=== PATIENT | male | born 1960 | race Caucasian/White ===

== ENCOUNTER → 2024-02-06 | Outpatient (CLI) | payer OTHER ==
--- NOTE | 2024-02-06 18:40 | PE ---
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 Images are reviewed on the computer in the coronal, axial, and sagittal planes. Reconstructed rotating images are created on independent workstation and reviewed on the computer. A non-contrast CT is performed in conjunction with the PET scan. Glucose level 90 mg/dL CT DLP: 901.69 mGycm, Automated exposure control for dose reduction was used. COMPARISON: CT 07/24/2015, PET/CT None, MRI: None FINDINGS: Mediastinal SUV mean is 2.1. Hepatic parenchyma SUV mean is 2.5. SKULL BASE AND NECK: Diffuse uptake identified within the thyroid gland with a maximum SUV of 7.7. No other suspicious sites of radiotracer uptake. CHEST, MEDIASTINUM, AND HILAR REGION: Distal esophageal FDG radiotracer marked uptake with a maximum SUV of 73. This extends to the GE junc tion. No other suspicious uptake within the chest. ABDOMEN AND PELVIS: Enlarged gastrohepatic lymph node measuring 1.3 cm with a maximum SUV of 8.3. No other suspicious sites of radiotracer uptake within the abdomen or pelvis. MUSCULOSKELETAL STRUCTURES: No suspicious radiotracer activity. OTHER CT: Coronary artery calcifications. Degenerative changes of the spine. Minimal scoliotic curvat ure of the spine. Postsurgical changes with anastomosis in the region of the sigmoid colon. Distal co lonic diverticulosis. Mild to moderate atherosclerotic calcification of the aorta and its branches. D iastases rectus. IMPRESSION: 1. Marked FDG radiotracer uptake of the distal esophagus to the GE junction consistent with reported esophageal malignancy. 2. Enlarged FDG avid gastrohepatic metastatic lymph node. 3. Diffuse thyroid radiotracer uptake which can be seen with conditions such as autoimmune thyroidit is or Graves' disease versus other etiologies. Further workup is recommended. [facility], , 02/06/2024 6:38 PM
== END | disposition home or self-care (01) ==
LOC: RADPETMAIN 09:44
PROVIDERS: ATTEND Internal Medicine Hematology & Oncology
DX: C15.5 Malignant neoplasm of lower third of esophagus (principal)
CPT/HCPCS: 78815

== ENCOUNTER 2024-03-05 12:07 | Day surgery (SDC) | payer OTHER ==
[2024-03-04 09:52] VITALS: BMI 31.5
[~2024-03-05 12:07] MED LIST: HYDROmorphone 0.5 MG/0.5 ML SYRINGE IVP PRN; MIDAZOLAM 2 MG/2 ML VIAL IV PRN
[2024-03-05] MEDS: IV FLUID CONTINUATION 1,000 ML IV ONE (13:02)
[2024-03-05] MEDS: LACTATED RINGERS 1,000 ML IV SCH (13:03)
[2024-03-05] MEDS: DEXAMETHASONE SOD PHOSPHATE 4 MG/ML 1 ML VIAL IV ONE (13:04)
[2024-03-05] MEDS: ONDANSETRON 4 MG/2 ML VIAL IVP ONE (13:04)
[2024-03-05] MEDS ORDERED: ceFAZolin 1 GM/50 ML BAG (PMX) ONE (15:13)
[2024-03-05] MEDS ORDERED: PROPOFOL 10 MG/ML 20 ML VIAL IV ONE (15:13)
[2024-03-05] MEDS ORDERED: fentaNYL (PF) 50 MCG/ML 2 ML AMP ONE (15:13)
[2024-03-05] MEDS ORDERED: MIDAZOLAM 2 MG/2 ML VIAL ONE (15:13)
[2024-03-05] MEDS: SODIUM CHLORIDE 0.9% 100 ML with ceFAZolin 2,000 MG IV ONE (15:18)
[2024-03-05] MEDS: LIDOCAINE 1% INJ 10MG/ML (20 ML MDV) SQ ONE ×2 (15:40)
[2024-03-05] MEDS: LACTATED RINGERS 1,000 ML IV ONE (15:57)
--- NOTE | 2024-03-05 16:32 | FL ---
EXAMINATION TYPE: FL guided central line placemt DATE OF EXAM: 03/05/2024 4:19 PM COMPARISON: Pre Operative Images if available both CT/MRI or plain film CLINICAL INDICATION: Male, 63 years old with history of PORTACATH PLACEMENT; TECHNIQUE: FL guided central line placemt, multiple fluoroscopic images provided for procedure. Total fluoroscopy time: 128 seconds Total submitted images to PACS: 1 DAP: [id number] mGym2 Gycm2 uGym2 cGycm2 or equivalent. FINDINGS: Fluoroscopic imaging for Port-A-Cath insertion no evidence for pneumothorax. IMPRESSION: 1. No evidence for intraoperative complication. 2. Please see the operative/procedural note for further details. [facility], , 03/05/2024 4:29 PM
--- NOTE | 2024-03-05 17:14 | XR ---
EXAMINATION TYPE: XR chest 1V DATE OF EXAM: 03/05/2024 4:36 PM COMPARISON: None CLINICAL INDICATION: Male, 63 years old with history of MEDIPORT PLACEMENT; [facility] TECHNIQUE: XR chest 1V Frontal view of the chest. FINDINGS: Lungs/Pleura: There is no evidence of pleural effusion, focal consolidation, or pneumothorax. Pulmonary vascularity: Unremarkable. Heart/mediastinum: Cardiomediastinal silhouette is unremarkable. Musculoskeletal: No acute osseous pathology. Other findings: None Lines/Tubes: [id number] projecting over the right hemithorax with distal tip at the cavoatrial junction. IMPRESSION: No acute cardiopulmonary disease/process. [facility], , 03/05/2024 5:11 PM
[2024-03-05 17:31] LABS: Glucose,Whole Blood 116 mg/dL (70-110)
[2024-03-05] MEDS: METOPROLOL TARTRATE 5 MG/5 ML VIAL IVP STA (17:31)
[2024-03-05] MEDS: DILTIAZEM 125 MG in SODIUM CHLORIDE 0.9% 100 ML IV SCH (18:33)
[2024-03-05] MEDS: SCOPOLAMINE 1 MG/72 HR PATCH TRANSDERM ONE (18:45)
[2024-03-05] MEDS: Pre Op ABX Message 1 EACH MISC MISCELLANE ONE (18:45)
[2024-03-06 08:35] VITALS: RESP 16
[2024-03-06 11:35] VITALS: PULSE 70
[2024-03-06 15:56] VITALS: BP 120/58; TEMP 97
--- NOTE | 2024-03-06 19:18 | P.GSHP ---
History of Present Illness patient is 60-year-old male with esophageal cancer being admitted postoperatively after having afib from undergoing a Mediport insertion. Past Medical History Past Medical History: Cancer, GERD/Reflux Additional Past Medical History / Comment(s): diverticulitis, sleep apnea-no CPAP, Esophageal cancer. A-fib NOS 03/05 post mediport History of Any Multi-Drug Resistant Organisms: None Reported Past Surgical History: Orthopedic Surgery Additional Past Surgical History / Comment(s): Colonoscopy, finger reattached from accident, colon resection, Esophageal scopes. Past Anesthesia/Blood Transfusion Reactions: No Reported Reaction Smoking Status: Former smoker - Past Family History Mother Family Medical History: No Reported History Father Family Medical History: No Reported History Additional Family Medical History / Comment(s): Dementia Medications and Allergies Home Medications Medication Instructions Recorded Confirmed Type Omeprazole [PriLOSEC] 20 mg PO AC-BRKFST 03/04/24 03/05/24 History Tirzepatide [Zepbound] 5 mg SQ Q7D 03/04/24 03/05/24 History Allergies Allergy/AdvReac Type Severity Reaction Status Date / Time No Known Allergies Allergy Verified 03/05/24 12:49 Surgical - Exam Osteopathic Statement: *. No significant issues noted on an osteopathic structural exam other than those noted in the History and Physical/Consult. Vital Signs Temp Pulse Resp BP Pulse Ox 97.9 F 64 18 144/69 96 03/05/24 12:45 03/05/24 12:45 03/05/24 12:45 03/05/24 12:45 03/05/24 12:45 general no acute distress alert annoyance 3 18 TH Ferrari normocephalic and spell or mucosa moist no neck masses appreciated Cardiac vascular regular rate and rhythm Pulmonary nonlabored breathing Abdomen soft nontender nondistended no guarding rebound tenderness Chest demonstrates a port in place surgical site clean dry and intact Assessment and Plan Assessment: 63-year-old male with esophageal cancer Status post Mediport insertion new onset A. fib Converted to sinus rhythm Stable for discharge Time with Patient: Less than 30
--- NOTE | 2024-03-06 19:21 | P.OP ---
Date of Procedure: 03/05/24 Preoperative Diagnosis: esophageal cancer Postoperative Diagnosis: esophageal cancer Procedure(s) Performed: right-sided Mediport insertion Anesthesia: local Surgeon: Tushar Mccann Pathology: none sent Condition: stable Disposition: floor Indications for Procedure: Esophageal cancer Description of Procedure: patient was brought to the operating suite where he was cleaned and draped in sterile fashion and timeout was performed and everyone agreed with the above- mentioned side effects the patient was anesthetized with the anesthesia team and introducer needle was then used to cannulate the subclavian vein a guidewire was placed with this to the cavoatrial junction. 2 finger breaths below the neck incision a pocket was created using a #15 blade and electrocautery dissecting down to the prepectoral fascia. Once a pocket was created and we used the tunneling device to place a catheter through the subcutaneous tissue through the neck incision. Fluoroscopy was then used to convert the guidewire and also to place the dilator sheath combo. The catheter was in place to the dilator sheath combo to the cavoatrial junction. Once this is confirmed the catheter was cut and the Mediport was placed over this, but the locking mechanism and sutured down to the prepectoral fascia. A Tafoya needle was used to confirm flow. And this was flushed using normal saline. Incision was then closed using 4-0 Vicryl suture in running fashion.
== END 2024-03-06 17:52 | disposition home or self-care (01) ==
LOC: OR 12:07 → 3SCARD 17:36 → OR 03-06 17:52
PROVIDERS: ATTEND Surgery
DX: C15.9 Malignant neoplasm of esophagus, unspecified (principal); I48.91 Unspecified atrial fibrillation; G47.30 Sleep apnea, unspecified; K21.9 Gastro-esophageal reflux disease without esophagitis; Z87.891 Personal history of nicotine dependence; Z79.899 Other long term (current) drug therapy
CPT/HCPCS: 77001; 71045; 36561; J1100; J2405; J0690; J2003

== ENCOUNTER 2024-03-25 17:58 | Inpatient (IN) | payer OTHER ==
[2024-03-25] MEDS: SODIUM CHLORIDE 0.9% 1,000 ML IV ONE (18:57)
[2024-03-25 19:02] LABS: HCT 42.6 % (39.0-53.0); HGB 14.5 gm/dL (13.0-17.5); MCV 85.5 fL (80.0-100.0); Mean Platelet Volume 7.8; Platelet Count 165 k/uL (150-450); RBC 4.98 m/uL (4.30-5.90); RDW 12.2 % (11.5-15.5)
[2024-03-25 19:04] LABS: VBG PH 7.48 (7.31-7.41)
[2024-03-25 19:16] LABS: INR 0.9 (<1.2); Partial Thromboplastin Time 25.3 sec (22.0-30.0); Prothrombin Time 10.5 sec (10.0-12.5)
--- NOTE | 2024-03-25 19:16 | XR ---
EXAMINATION TYPE: XR chest 2V DATE OF EXAM: 03/25/2024 7:10 PM COMPARISON: Previous chest radiograph 03/05/2024. CLINICAL INDICATION: Male, 63 years old with history of altered mental status; [facility] TECHNIQUE: XR chest 2V Frontal and lateral views of the chest. FINDINGS: Lungs/Pleura: There is no evidence of pleural effusion, focal consolidation, or pneumothorax. Pulmonary vascularity: Unremarkable. Heart/mediastinum: Cardiomediastinal silhouette is prominent in size. Musculoskeletal: No acute osseous pathology. Other findings: None Lines/Tubes: Right internal jugular central venous catheter with distal tip at the right atrium. IMPRESSION: No acute cardiopulmonary disease/process. [facility], , 03/25/2024 7:14 PM
[2024-03-25 19:25] LABS: WBC 1.4 k/uL (3.8-10.6)
[2024-03-25 19:27] LABS: Lactic Acid, Venous 1.3 mmol/L (0.7-2.0)
[2024-03-25 19:28] LABS: ALT 32 U/L (4-49); AST 28 U/L (17-59); African American GFR (CKD) >90 (>60 ml/min/1.73 sqM); Albumin 4.4 g/dL (3.5-5.0); Alcohol <10 mg/dL; Alkaline Phosphatase 65 U/L (38-126); Anion Gap 11 mmol/L; Blood Urea Nitrogen 23 mg/dL (9-20); Calcium 9.3 mg/dL (8.4-10.2); Carbon Dioxide 27 mmol/L (22-30); Chloride 99 mmol/L (98-107); Glucose 130 mg/dL (74-99); Non-African American GFR(CKD) >90 (>60 ml/min/1.73 sqM); Potassium 3.7 mmol/L (3.5-5.1); Sodium 137 mmol/L (137-145); Total Bilirubin 1.1 mg/dL (0.2-1.3)
[2024-03-25 19:53] LABS: Band Neutrophils % 4 %; Eosinophils # (M) 0.03 k/uL (0-0.7); Lymphocytes # (M) 0.59 k/uL (1.0-4.8); Monocytes # (M) 0.22 k/uL (0-1.0); Neutrophils % (M) 36 %; Nucleated Red Blood Cells 0 /100 WBC (0-0); RBC Morphology Normal; Total Cells Counted 100
[2024-03-25] MEDS: DEXAMETHASONE SOD PHOSPHATE 10 MG/ML 1 ML VIAL IVP STA (19:55)
--- NOTE | 2024-03-25 20:28 | CT ---
EXAMINATION TYPE: CT brain wo con DATE OF EXAM: 03/25/2024 7:34 PM COMPARISON: None available. CLINICAL INDICATION: Male, 63 years old with history of Altered mental status, ams TECHNIQUE: Brain: Axial CT images of the brain were obtained with coronal and sagittal reformats created and rev iewed. Contrast used: None. Oral contrast used: None. CT DLP: 1154.4 mGycm, Automated exposure control for dose reduction was used. FINDINGS: Brain: Peripherally hyperdense mass in the left frontal lobe measuring 3.0 x 3.3 x 3.5 cm with extensive martha rounding vasogenic edema and associated rightward mass effect. There is approximately [address] midline shift of the septum pellucidum. 5 Basal cisterns appear patent. Remaining portions of the allen-white matter differentiation appear ac utely preserved. No sizable extra-axial fluid collection appreciated. Sinuses and mastoid air cells a ppear patent. No large scalp hematoma or depressed calvarial fracture. IMPRESSION: Large circumscribed peripherally hyperdense possibly centrally necrotic left frontal lobe mass measur ing 3.0 x 3.3 x 3.5 cm with extensive surrounding vasogenic edema and associated mass effect and mild rightward midline shift as described above. Findings could reflect either metastatic disease or prim sherry brain malignancy. Recommend neurosurgical consultation and MRI with IV contrast for further evalu ation as clinically indicated. [facility], , 03/25/2024 8:25 PM
--- NOTE | 2024-03-25 21:25 | ED ---
General Adult HPI - General Chief complaint: Altered Mental Status Stated complaint: post chemo lethargy Time Seen by Provider: 03/25/24 18:20 Source: patient, family, RN notes reviewed, old records reviewed Mode of arrival: wheelchair Limitations: no limitations - History of Present Illness Initial comments: Patient is a 63-year-old male with past medical history remarkable for esophageal cancer with what sounds like metastasis to the liver. Currently on chemotherapy. No other significant past medical history. Presents for altered mental status for 2 to 3 days. Worse today. They are concerned it might be related dehydration as patient has not been eating or drinking. He is below baseline as he normally is alert and oriented x 4. Currently is alert and oriented x 1. No other obvious acute complaints at this time. He is acting atypically per patient's . Brought in for further evaluation.Patient cannot provide any history other than he is in no pain. Otherwise is confused with the discussion.He can follow directions but is an unreliable historian. - Related Data Home Medications Medication Instructions Recorded Confirmed Omeprazole [PriLOSEC] 20 mg PO AC-BRKFST 03/04/24 03/05/24 Tirzepatide [Zepbound] 5 mg SQ Q7D 03/04/24 03/05/24 Allergies Allergy/AdvReac Type Severity Reaction Status Date / Time No Known Allergies Allergy Verified 03/05/24 12:49 Review of Systems ROS Statement: Those systems with pertinent positive or pertinent negative responses have been documented in the HPI. ROS Other: All systems not noted in ROS Statement are negative. Past Medical History Past Medical History: Cancer, GERD/Reflux Additional Past Medical History / Comment(s): diverticulitis, sleep apnea-no C PAP, Esophageal cancer. A-fib NOS 03/05 post mediport History of Any Multi-Drug Resistant Organisms: None Reported Past Surgical History: Orthopedic Surgery Additional Past Surgical History / Comment(s): Colonoscopy, finger reattached from accident, colon resection, Esophageal scopes. Past Anesthesia/Blood Transfusion Reactions: No Reported Reaction Past Psychological History: No Psychological Hx Reported Smoking Status: Former smoker - Past Family History Mother Family Medical History: No Reported History Father Family Medical History: No Reported History Additional Family Medical History / Comment(s): Dementia General Exam - General Exam Comments Initial Comments: General: Appears in no acute distress. HEAD: Normal with no signs of head trauma. EYES: PERRLA, EOMI, conjunctiva normal, no discharge. Pupils are 2 to 3 mm and equal bilaterally. ENT: Hearing grossly intact, normal oropharynx. RESPIRATORY: Clear breath sounds bilaterally. No wheezes, rales, or rhonchi. C/V: Regular rate and rhythm. S1 and S2 auscultated, no edema, peripheral pulses 2+ and intact throughout. Right chest port in place. ABD: Abd is soft, nontender, nondistended EXT: Normal range of motion, no obvious deformity SKIN: No rashes or lesions observed on exposed skin. NEURO: Alert and oriented x 1. Baseline is alert and oriented x 4. No obvious focal deficits. Patient is confused. Limitations: no limitations Course Vital Signs 03/25/24 03/25/24 03/25/24 18:14 18:52 19:57 Temperature 99.3 F 98.8 F Pulse Rate 88 80 85 Respiratory 20 16 17 Rate Blood Pressure 117/73 144/82 145/76 O2 Sat by Pulse 97 94 L 95 Oximetry Medical Decision Making - Medical Decision Making Was pt. sent in by a medical professional or institution (, PA, ORGANIZATIONAL DEVELOPMENT DIRECTOR, urgent care, hospital, or retirement...) When possible be specific @ -No Did you speak to anyone other than the patient for history (EMS, parent, family, police, friend...)? What history was obtained from this source @ -Patient's family is the primary historian for the patient. Patient cannot provide any significant history of form. Did you review nursing and triage notes (agree or disagree)? Why? @ -I reviewed and agree with nursing and triage notes Were old charts reviewed (outside hosp., previous admission, EMS record, old EKG, old radiological studies, urgent care reports/EKG's, retirement records)? Report findings @ -Old charts including PET scan reviewed from January 2024. Differential Diagnosis (chest pain, altered mental status, abdominal pain women, abdominal pain men, vaginal bleeding, weakness, fever, dyspnea, syncope, headache, dizziness, GI bleed, back pain, seizure, CVA, palpatations, mental health, musculoskeletal)? @ -Differential Altered Mental Status: Hypoglycemia, DKA, hypercapnia, ETOH, overdose, CO poisoning, trauma, myxedema coma, HTN encephalopathy, infection, encephalitis, psychosis, intercranial hemorrhage, hepatic encephalopathy, meningitis, CVA, this is not meant to be an all-inclusive list EKG interpreted by me (3pts min.). @ -As above X-rays interpreted by me (1pt min.). @ -Chest x-ray reveals no obvious acute cardiopulmonary process. CT interpreted by me (1pt min.). @ -Brain CT reveals a necrotic left frontal lobe mass with surrounding vasogenic edema and mild midline shift of 6 mm. U/S interpreted by me (1pt. min.). @ -None done What testing was considered but not performed or refused? (CT, X-rays, U/S, labs)? Why? @ -None What meds were considered but not given or refused? Why? @ -None Did you discuss the management of the patient with other professionals (professionals i.e. , PA, ORGANIZATIONAL DEVELOPMENT DIRECTOR, lab, RT, psych nurse, psychiatric social worker, eyewear manufacturing supervisor, teacher, corrections officer, protective services case worker)? Give summary @ -Discussed with oncology on-call, Dr. Gil, who was in agreement with no need for transfer at this time as patient likely will require radiation as well as IV steroids. Discussed the case with on-call neurologist, Dr. Reyes she was in agreement this plan and requested an additional 10 mg IV Decadron bolus as well as 6 mg Decadron every 6 hr. Discussed the case with admitting physician, Dr. Winn who accepted the admission. Was smoking cessation discussed for >3mins.? @ -No Was critical care preformed (if so, how long)? @ -Yes, 42 minutes Were there social determinants of health that impacted care today? How? (Homelessness, low income, unemployed, alcoholism, drug addiction, transportation, low edu. Level, literacy, decrease access to med. care, retirement, rehab)? @ -No Was there de-escalation of care discussed even if they declined (Discuss DNR or withdrawal of care, Hospice)? DNR status @ -Discussed at length with the patient's who is the decision maker for the patient as he is incapacitated and incoherent and unable to make his own decisions. Discussed that he did not want any extraneous surgeries or strenuous care. Discussed that if he were to need brain surgery, what he wanted and patient's expressed that he would not. We both agreed to make the patient DNR/DNI at this time. What co-morbidities impacted this encounter? (DM, HTN, Smoking, COPD, CAD, Cancer, CVA, ARF, Chemo, Hep., AIDS, mental health diagnosis, sleep apnea, morbid obesity)? @ -Cancer Was patient admitted / discharged? Hospital course, mention meds given and route, prescriptions, significant lab abnormalities, going to OR and other pertinent info. @ -Based on patient's presentation and physical exam, presents with altered mental status. Has a history of metastatic cancer. Currently undergoing chemo. Appears dehydrated as well. We will obtain broad workup. Vital signs within acceptable limits. Patient is ANO x 1 when baseline he is A and O x 4. No focal deficits. Patient was in agreement this plan. Laboratory studies are all unremarkable except for a leukopenia which is fitting in the setting of chemo. No fever. Chest x-ray unremarkable. EKG unremarkable. CT does show a necrotic frontal lobe mass on the left with mild midline shift of 6 mm. No prior brain imaging during cancer workup. I discussed results with the patient's . We discussed at length options. This includes transfer for neurosurgery evaluation, however after discussion it appears that patient would prefer to be DNR DNI based on prior discussion she had with him. He would not request any strenuous surgeries or circumstances. Therefore patient will be made DNR/DNI and will be admitted to our facility for IV steroids, oncology evaluation, neurology evaluation. I discussed the case with Dr. Gil of oncology who was in agreement with this plan and agreed with these recommendations of keeping patient at our facility.Discussed the case with on-call neurologist, Dr. Reyes she was in agreement this plan and requested an additional 10 mg IV Decadron bolus as well as 6 mg Decadron every 6 hr. Discussed the case with admitting physician, Dr. Winn who accepted the admission. Undiagnosed new problem with uncertain prognosis? @ -No Drug Therapy requiring intensive monitoring for toxicity (Heparin, Nitro, Insulin, Cardizem)? @ -No Were any procedures done? @ -No Diagnosis/symptom? @ -Altered mental status likely secondary to vasogenic edema from necrotic brain malignancy Acute, or Chronic, or Acute on Chronic? @ -Acute Uncomplicated (without systemic symptoms) or Complicated (systemic symptoms)? @ -Complicated Side effects of treatment? @ -No Exacerbation, Progression, or Severe Exacerbation? @ -No Poses a threat to life or bodily function? How? (Chest pain, [place], [place], pneumonia, PE, COPD, DKA, ARF, appy, cholecystitis, CVA, Diverticulitis, Homicidal, Suicidal, threat to staff... and all critical care pts) @ -Yes - Lab Data Result diagrams: 03/25/24 18:44 03/25/24 18:44 Lab Results 03/25/24 03/25/24 03/25/24 Range/Units 18:44 18:44 18:44 WBC 1.4 L* (3.8-10.6) k/uL RBC 4.98 (4.30-5.90) m/uL Hgb 14.5 (13.0-17.5) gm/dL Hct 42.6 (39.0-53.0) % MCV 85.5 (80.0-100.0) fL MCH 29.0 (25.0-35.0) pg MCHC 34.0 (31.0-37.0) g/dL RDW 12.2 (11.5-15.5) % Plt Count 165 (150-450) k/uL MPV 7.8 Neutrophils % (Manual) 36 % Band Neuts % (Manual) 4 % Lymphocytes % (Manual) 42 % Monocytes % (Manual) 16 % Eosinophils % (Manual) 2 % Neutrophils # (Manual) 0.50 L (1.3-7.7) k/uL Lymphocytes # (Manual) 0.59 L (1.0-4.8) k/uL Monocytes # (Manual) 0.22 (0-1.0) k/uL Eosinophils # (Manual) 0.03 (0-0.7) k/uL Nucleated RBCs 0 (0-0) /100 WBC Manual Slide Review Performed RBC Morphology Normal PT 10.5 (10.0-12.5) sec INR 0.9 (<1.2) APTT 25.3 (22.0-30.0) sec VBG pH (7.31-7.41) VBG pCO2 (37-51) mmHg VBG HCO3 (24-28) mmol/L Sodium 137 (137-145) mmol/L Potassium 3.7 (3.5-5.1) mmol/L Chloride 99 (98-107) mmol/L Carbon Dioxide 27 (22-30) mmol/L Anion Gap 11 mmol/L BUN 23 H (9-20) mg/dL Creatinine 0.85 (0.66-1.25) mg/dL Est GFR (CKD-EPI)AfAm >90 (>60 ml/min/1.73 sqM) Est GFR (CKD-EPI)NonAf >90 (>60 ml/min/1.73 sqM) Glucose 130 H (74-99) mg/dL Plasma Lactic Acid Evin (0.7-2.0) mmol/L Calcium 9.3 (8.4-10.2) mg/dL Total Bilirubin 1.1 (0.2-1.3) mg/dL AST 28 (17-59) U/L ALT 32 (4-49) U/L Alkaline Phosphatase 65 (38-126) U/L Ammonia (<30) umol/L Total Protein 7.0 (6.3-8.2) g/dL Albumin 4.4 (3.5-5.0) g/dL Serum Alcohol <10 mg/dL Influenza Type A (PCR) (Not Detectd) Influenza Type B (PCR) (Not Detectd) RSV (PCR) (Not Detectd) SARS-CoV-2 (PCR) (Not Detectd) 03/25/24 03/25/24 03/25/24 Range/Units 18:44 18:44 18:44 WBC (3.8-10.6) k/uL RBC (4.30-5.90) m/uL Hgb (13.0-17.5) gm/dL Hct (39.0-53.0) % MCV (80.0-100.0) fL MCH (25.0-35.0) pg MCHC (31.0-37.0) g/dL RDW (11.5-15.5) % Plt Count (150-450) k/uL MPV Neutrophils % (Manual) % Band Neuts % (Manual) % Lymphocytes % (Manual) % Monocytes % (Manual) % Eosinophils % (Manual) % Neutrophils # (Manual) (1.3-7.7) k/uL Lymphocytes # (Manual) (1.0-4.8) k/uL Monocytes # (Manual) (0-1.0) k/uL Eosinophils # (Manual) (0-0.7) k/uL Nucleated RBCs (0-0) /100 WBC Manual Slide Review RBC Morphology PT (10.0-12.5) sec INR (<1.2) APTT (22.0-30.0) sec VBG pH 7.48 H (7.31-7.41) VBG pCO2 36 L (37-51) mmHg VBG HCO3 27 (24-28) mmol/L Sodium (137-145) mmol/L Potassium (3.5-5.1) mmol/L Chloride (98-107) mmol/L Carbon Dioxide (22-30) mmol/L Anion Gap mmol/L BUN (9-20) mg/dL Creatinine (0.66-1.25) mg/dL Est GFR (CKD-EPI)AfAm (>60 ml/min/1.73 sqM) Est GFR (CKD-EPI)NonAf (>60 ml/min/1.73 sqM) Glucose (74-99) mg/dL Plasma Lactic Acid Evin 1.3 (0.7-2.0) mmol/L Calcium (8.4-10.2) mg/dL Total Bilirubin (0.2-1.3) mg/dL AST (17-59) U/L ALT (4-49) U/L Alkaline Phosphatase (38-126) U/L Ammonia 21 (<30) umol/L Total Protein (6.3-8.2) g/dL Albumin (3.5-5.0) g/dL Serum Alcohol mg/dL Influenza Type A (PCR) Not Detected (Not Detectd) Influenza Type B (PCR) Not Detected (Not Detectd) RSV (PCR) Not Detected (Not Detectd) SARS-CoV-2 (PCR) Not Detected (Not Detectd) - EKG Data -: EKG Interpreted by Me EKG Comments: 12-lead Electrocardiogram Interpretation Note EKG was reviewed and interpreted by myself. 12-lead ECG performed at 1824 is interpreted by me as revealing normal sinus rhythm at a rate of 85 beats per minute. [place] is normal. ID interval is 145 ms, QRS duration is 102 ms, QTc is 4 and 38 ms.. There were no ST or T wave abnormalities to suggest myocardial ischemia or injury. R wave progression across the precordium was satisfactory. By my interpretation this EKG is non-diagnostic for acute ischemia. Critical Care Time Critical Care Time: Yes Total Critical Care Time: 42 Disposition Clinical Impression: Altered mental status, Metastatic disease, Malignant frontal lobe tumor Disposition: ADMITTED IP TO THIS [facility] Condition: Serious Referrals: Mata Monzon MD [Primary Care Provider] - 1-2 days Time of Disposition: 21:25
[2024-03-25] MEDS ORDERED: SODIUM CHLORIDE 0.9% 1,000 ML IV STA (21:26)
[2024-03-25] MEDS ORDERED: NALOXONE 0.4 MG/ML 1 ML VIAL IV PRN (21:27)
[2024-03-25] MEDS ORDERED: ONDANSETRON 4 MG/2 ML VIAL IVP PRN (21:27)
[2024-03-26] MEDS: DEXAMETHASONE SOD PHOSPHATE 10 MG/ML 1 ML VIAL IVP STA (02:02)
[2024-03-26 02:28] LABS: Appearance,Urine Clear (Clear); Bilirubin,Urine Negative (Negative); Blood,Urine Negative (Negative); Color,Urine Yellow; Glucose,Urine (UA) Negative (Negative); Ketones,Urine 1+ (Negative); Leukocyte Esterase,Urine Negative (Negative); Nitrite,Urine Negative (Negative); Protein,Urine Trace (Negative); Specific Gravity,Urine 1.029 (1.001-1.035); Urobilinogen,Urine <2.0 mg/dL (<2.0)
[2024-03-26 02:40] LABS: Amphetamine Screen,Urine Not Detected (NotDetected); Barbiturate Screen,Urine Not Detected (NotDetected); Benzodiazepines Screen,Urine Not Detected (NotDetected); Cocaine Screen,Urine Not Detected (NotDetected); Methadone Screen, Urine Not Detected (NotDetected); Opiate Screen,Urine Not Detected (NotDetected); Oxycodone Screen, Urine Not Detected (NotDetected); Phencyclidine Screen,Urine Not Detected (NotDetected); Tricyclic Antidepressant,Urine Not Detected (NotDetected); Urn Cannabinoid Scrn Not Detected (NotDetected)
[2024-03-26] MEDS: DEXAMETHASONE SOD PHOSPHATE 10 MG/ML 1 ML VIAL IVP SCH (04:27)
--- NOTE | 2024-03-26 06:50 | P.CNNES ---
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 History of Present Illness: Mr. Elizabeth is a 63-year-old right-handed male with history of esophageal cancer. He had a recent PET scan approximately 1 month ago and staging was unavailable at that time. He also has gastroesophageal reflux disease, diverticulitis and had a colectomy, obstructive sleep apnea for which she does not wear CPAP as well as a transient episode of atrial fibrillation when his port was placed. He was brought to [facility] emergency room on the evening of March 25, 2024 as has noted altered mental status for the past 3 days. The patient has been sleeping profusely and not eating or drinking very much. A CT scan of the brain revealed a left frontal lobe mass approximately 3 x 3.3 x 3.5 cm with some surrounding vasogenic edema and 5 mm of [id number] shift. Neurology was consulted from the emergency room and recommended dexamethasone 20 mg bolus followed by 6 mg every 6 hours. This morning, the patient is arousable but he is confused and not oriented to place or time. He will follow simple commands. There is no evidence of a seizure thus far. When she was consulted for further management and recommendations. Review of Systems Systems was limited secondary to patient's altered mental status. His notes that he was complaining of some knee pain last week and has has had some urinary and bowel incontinence while he has been relatively immobile the past 2 or 3 days Past Medical History Past Medical History: Cancer, GERD/Reflux Additional Past Medical History / Comment(s): diverticulitis, sleep apnea-no CPAP, Esophageal cancer. A-fib NOS 03/05 post mediport History of Any Multi-Drug Resistant Organisms: None Reported Past Surgical History: Orthopedic Surgery Additional Past Surgical History / Comment(s): Colonoscopy, finger reattached from accident, colon resection, Esophageal scopes. Past Anesthesia/Blood Transfusion Reactions: No Reported Reaction Past Psychological History: No Psychological Hx Reported Smoking Status: Former smoker - Past Family History Mother Family Medical History: No Reported History Father Family Medical History: No Reported History Additional Family Medical History / Comment(s): Dementia Medications and Allergies Home Medications Medication Instructions Recorded Confirmed Type Omeprazole [PriLOSEC] 20 mg PO AC-BRKFST 03/04/24 03/05/24 History Tirzepatide [Zepbound] 5 mg SQ Q7D 03/04/24 03/05/24 History Allergies Allergy/AdvReac Type Severity Reaction Status Date / Time No Known Allergies Allergy Verified 03/05/24 12:49 Physical Examination - Vital Signs Vital Signs: Vital Signs Temp Pulse Resp BP Pulse Ox 03/26/24 04:22 97.4 F L 87 17 142/89 95 03/26/24 01:58 98.8 F 79 17 145/76 91 L 03/25/24 19:57 98.8 F 85 17 145/76 95 03/25/24 18:52 80 16 144/82 94 L 03/25/24 18:14 99.3 F 88 20 117/73 97 Intake and Output 03/25/24 03/25/24 03/26/24 14:59 22:59 06:59 Other: Weight 97.976 kg Was somewhat limited by patient's altered mental status and lack of full cooperation. - Constitutional General appearance: average body habitus - EENT EENT: PERRL - Respiratory Respiratory: chest non-tender, lungs clear, normal breath sounds - Cardiovascular Cardiovascular: regular rate, no murmurs - Gastrointestinal Gastrointestinal: normoactive bowel sounds, non-tender - Integumentary Integumentary: normal - Neurologic Cranial nerve examination: PERRL, EOMI, VFF, V1/V2/V3 grossly intact, face symmetric, tongue midline Sensorimotor examination: intact Detailed motor examination: full strength in all major muscle groups Detailed sensory examination: intact Reflex and gait examination: other (This is 4+ approximately 1+ in bilateral upper and lower extremities, and plantar sponsors were downgoing bilaterally.) Results Contrast CT of the brain from March 25 reveals a large centrally positioned left frontal lobe mass approximately 3 x 3.3 x 3.5 cm with surrounding vasogenic edema and 6 mm of [id number]-[id number] shift. There did not appear to be any obvious brainstem compression but there was some compression on the lateral horn of the left lateral ventricle. Chest x-ray revealed a right internal jugular venous catheter ending in the right atrium. Other pertinent labs include white blood cell count significantly decreased at 1.4. Arterial blood gases revealed pH of 7.48 pCO2 36 and reported of 27. - Laboratory Findings CBC and BMP: 03/25/24 18:44 03/25/24 18:44 Abnormal Lab Findings: Abnormal Labs 03/25/24 03/25/24 03/25/24 18:44 18:44 18:44 WBC 1.4 L* Neutrophils # (Manual) 0.50 L Lymphocytes # (Manual) 0.59 L VBG pH 7.48 H VBG pCO2 36 L BUN 23 H Glucose 130 H Urine Protein Urine Ketones 03/26/24 01:56 WBC Neutrophils # (Manual) Lymphocytes # (Manual) VBG pH VBG pCO2 BUN Glucose Urine Protein Trace H Urine Ketones 1+ H Assessment and Plan Assessment: Mr. Elizabeth is a 63-year-old right-handed male with history of esophageal cancer evaluation, now stage IV by evidence of a left frontal lobe mass. He has some significant edema surrounding the mass with altered mental status for the past 2 to 3 days. Plan: 1. The patient will be managed with dexamethasone 6 mg every 6 hours follow-up following a 20 mg bolus last night in the emergency room. 2. I am not ordering an MRI of the brain at this time as the patient has some altered mental status and it may be somewhat difficult to obtain. Follow-up imaging will be dictated by patient's course of improvement or decline. 3. Oncology has been consulted and will follow along with neurology and have an assist management of the patient. 4. Will not start prophylactic anticonvulsants at this time as the patient does not appear to have had a seizure. Should this happen he will receive a Keppra 500 mg every 12 hours. 5. Neurology will continue to follow the patient in house and make further recommendations as needed. Time with Patient: Less than 30
[2024-03-26 07:10] LABS: ALT 32 U/L (4-49); AST 28 U/L (17-59); African American GFR (CKD) >90 (>60 ml/min/1.73 sqM); Albumin 4.2 g/dL (3.5-5.0); Alkaline Phosphatase 61 U/L (38-126); Anion Gap 7 mmol/L; Blood Urea Nitrogen 19 mg/dL (9-20); Calcium 9.3 mg/dL (8.4-10.2); Carbon Dioxide 26 mmol/L (22-30); Chloride 103 mmol/L (98-107); Glucose 150 mg/dL (74-99); Non-African American GFR(CKD) >90 (>60 ml/min/1.73 sqM); Potassium 4.2 mmol/L (3.5-5.1); Sodium 136 mmol/L (137-145); Total Bilirubin 1.1 mg/dL (0.2-1.3)
[2024-03-26 07:54] LABS: Basophils % (A) 0 %; Eosinophils % (A) 0 %; HGB 14.7 gm/dL (13.0-17.5); Lymphocytes # (A) 0.6 k/uL (1.0-4.8); Lymphocytes % (A) 48 %; MCH 29.5 pg (25.0-35.0); MCHC 35.1 g/dL (31.0-37.0); MCV 83.9 fL (80.0-100.0); Mean Platelet Volume 8.4; Monocytes # (A) 0.2 k/uL (0-1.0); Monocytes % (A) 13 %; Neutrophils % (A) 35 %; Platelet Count 194 k/uL (150-450); RDW 12.8 % (11.5-15.5)
[2024-03-26 07:57] LABS: WBC 1.2 k/uL (3.8-10.6)
[2024-03-26 08:36] LABS: Neutrophils # (A) 0.4 k/uL (1.3-7.7)
[2024-03-26] MEDS ORDERED: DEXTROSE 50% SYRINGE 50 ML IVP PRN ×2 (09:42)
[2024-03-26 11:44] LABS: Glucose,Whole Blood 143 mg/dL (70-110)
[2024-03-26] MEDS: INSULIN ASPART (NovoLOG) 100 UNIT/ML VIAL SQ SCH (11:46)
--- NOTE | 2024-03-26 12:56 | P.CONS ---
History of Present Illness - Reason for Consult Consult date: 03/26/24 New diagnosis of brain mass, esophageal cancer - History of Present Illness The patient is a 63-year-old white male, followed by Dr. Smith in the outpatient setting. The patient was diagnosed with a distal esophageal adenocarcinoma in late 01/19. On subsequent staging with PET scan and EUS, he was found to have involvement of perigastric and celiac lymph nodes. The patient was started on chemotherapy with FLOT, and has had 1 cycle last week The patient was brought into the hospital by his family, as over the past 3 days, there was a major change in his mentation. He was quite lethargic, with significantly decreased responsiveness and comprehension. Oral intake had declined markedly. There was no history of headaches, seizure activity, nausea or vomiting. On evaluation in the ER he had a chest x-ray and a CT scan of the brain done, without contrast. This showed a 3 x 3.3 x 3.5 cm mass in the left frontal lobe with surrounding vasogenic edema and about 6 cm of midline shift. The patient was started on high-dose Decadron. When assessed this a.m., there has been about a 50% improvement. He is alert, mobile, and following commands appropriately. However orientation and recall are still significantly diminished. Review of Systems Constitutional: Reports fatigue, Reports weight loss Eyes: denies blurred vision, denies pain Ears: deny: decreased hearing, ear discharge, earache, tinnitus Ears, nose, mouth and throat: Denies headache, Denies sore throat Cardiovascular: Denies chest pain, Denies shortness of breath Respiratory: Denies cough Gastrointestinal: Reports as per HPI, Reports loss of appetite Genitourinary: Reports as per HPI Musculoskeletal: Reports muscle weakness Integumentary: Denies pruritus, Denies rash Neurological: Reports as per HPI, Reports change in mentation, Reports memory loss, Reports weakness Psychiatric: Reports memory loss Endocrine: Reports fatigue, Reports weight change Hematologic/Lymphatic: Reports as per HPI Past Medical History Past Medical History: Cancer, GERD/Reflux Additional Past Medical History / Comment(s): diverticulitis, sleep apnea-no CPAP, Esophageal cancer. A-fib NOS 03/05 post mediport History of Any Multi-Drug Resistant Organisms: None Reported Past Surgical History: Orthopedic Surgery Additional Past Surgical History / Comment(s): Colonoscopy, finger reattached from accident, colon resection, Esophageal scopes. Past Anesthesia/Blood Transfusion Reactions: No Reported Reaction Past Psychological History: No Psychological Hx Reported Smoking Status: Former smoker - Past Family History Mother Family Medical History: No Reported History Father Family Medical History: No Reported History Additional Family Medical History / Comment(s): Dementia Medications and Allergies Home Medications Medication Instructions Recorded Confirmed Type Omeprazole [PriLOSEC] 20 mg PO DAILY PRN 03/04/24 03/26/24 History Lidocaine-Prilocaine Cream [Emla 1 applic TOPICAL DAILY PRN 03/26/24 03/26/24 History Cream 2.5%/2.5%] Ondansetron [Zofran] 4 mg PO Q6H PRN 03/26/24 03/26/24 History dexAMETHasone [Decadron] 4 mg PO DIRECTED 03/26/24 03/26/24 History Allergies Allergy/AdvReac Type Severity Reaction Status Date / Time No Known Allergies Allergy Verified 03/26/24 10:41 Physical Exam Vitals: Vital Signs Temp Pulse Resp BP Pulse Ox 03/26/24 10:54 85 18 130/84 95 03/26/24 09:31 74 18 133/93 94 L 03/26/24 07:19 98.0 F 81 18 144/85 94 L 03/26/24 04:22 97.4 F L 87 17 142/89 95 03/26/24 01:58 98.8 F 79 17 145/76 91 L 03/25/24 19:57 98.8 F 85 17 145/76 95 03/25/24 18:52 80 16 144/82 94 L 03/25/24 18:14 99.3 F 88 20 117/73 97 Intake and Output 03/25/24 03/26/24 03/26/24 22:59 06:59 14:59 Other: Weight 97.976 kg - Constitutional General appearance: no acute distress - EENT Eyes: EOMI, PERRLA ENT: hearing grossly normal, normal oropharynx - Neck Neck: no lymphadenopathy Thyroid: bilateral: normal size - Respiratory Respiratory: bilateral: CTA - Cardiovascular Rhythm: regular Heart sounds: normal: S1, S2 - Gastrointestinal General gastrointestinal: soft - Integumentary Integumentary: normal - Neurologic Neurologic: CNII-XII intact - Musculoskeletal Musculoskeletal: generalized weakness, strength equal bilaterally - Psychiatric Oriented only to self. Able to follow commands. Not oriented to time or place. Unable to state the exact date, or his address. Verbal responses to questions otherwise are somewhat slow, but overall appropriate Results CBC & Chem 7: 03/26/24 06:42 03/26/24 06:42 Labs: Abnormal Lab Results - Last 24 Hours (Table) 03/25/24 03/25/24 03/25/24 Range/Units 18:44 18:44 18:44 WBC 1.4 L* (3.8-10.6) k/uL Neutrophils # (1.3-7.7) k/uL Neutrophils # (Manual) 0.50 L (1.3-7.7) k/uL Lymphocytes # (1.0-4.8) k/uL Lymphocytes # (Manual) 0.59 L (1.0-4.8) k/uL VBG pH 7.48 H (7.31-7.41) VBG pCO2 36 L (37-51) mmHg Sodium (137-145) mmol/L BUN 23 H (9-20) mg/dL Glucose 130 H (74-99) mg/dL POC Glucose (mg/dL) (70-110) mg/dL Urine Protein (Negative) Urine Ketones (Negative) 03/26/24 03/26/24 03/26/24 Range/Units 01:56 06:42 06:42 WBC 1.2 L* (3.8-10.6) k/uL Neutrophils # 0.4 L* (1.3-7.7) k/uL Neutrophils # (Manual) (1.3-7.7) k/uL Lymphocytes # 0.6 L (1.0-4.8) k/uL Lymphocytes # (Manual) (1.0-4.8) k/uL VBG pH (7.31-7.41) VBG pCO2 (37-51) mmHg Sodium 136 L (137-145) mmol/L BUN (9-20) mg/dL Glucose 150 H (74-99) mg/dL POC Glucose (mg/dL) (70-110) mg/dL Urine Protein Trace H (Negative) Urine Ketones 1+ H (Negative) 03/26/24 Range/Units 11:42 WBC (3.8-10.6) k/uL Neutrophils # (1.3-7.7) k/uL Neutrophils # (Manual) (1.3-7.7) k/uL Lymphocytes # (1.0-4.8) k/uL Lymphocytes # (Manual) (1.0-4.8) k/uL VBG pH (7.31-7.41) VBG pCO2 (37-51) mmHg Sodium (137-145) mmol/L BUN (9-20) mg/dL Glucose (74-99) mg/dL POC Glucose (mg/dL) 143 H (70-110) mg/dL Urine Protein (Negative) Urine Ketones (Negative) Chest x-ray: report reviewed CT Scan - head: report reviewed Assessment and Plan (1) Malignant frontal lobe tumor Narrative/Plan: This is a new finding, with the patient presenting with symptoms that have developed over the past 3 to 4 days. The patient has a midline shift of about 6 mm. The family were overall reluctant for transfer and it was therefore d ecided to start him on high-dose steroids and then reassess response. The patient has had significant improvement, but still has ongoing deficits as described in the physical exam and HPI. Case was discussed with radiation oncology, who evaluated his scan. They felt that if the patient has not im proved fully with steroids, and family was willing, then he should have a neurosurgical evaluation and MRI -The above was discussed with the patient and his who are at the bedside in detail. They were advised that if transfer does not definitively mean that the patient will have surgery. That would have to be a decision by the neurosurgeon. If he is felt to require surgery and is an appropriate candidate for the same, and he would proceed with that, and then have radiation. If surgery is not felt to be required, then he would start radiation and then subsequently a steroid taper. Based on our discussion, there were subsequently willing for transfer for neurosurgical evaluation. This was discussed in detail with the admitting service, who will initiate the transfer. -The patient needs MRI for more comprehensive evaluation of the brain. It was felt by neurology, and they evaluated him earlier today, that he likely would not be able to cooperate with the MRI given his altered mentation. The patient does seem more cooperative, but his family is still not certain if he would be able to lay still for the time required to complete the MRI. Since transfer is being initiated, he would hold off on ordering the study if this will happen in the near future. In that case it can be done at the receiving institution. -Continue high-dose IV steroids Current Visit: Yes Status: Acute Code(s): C71.1 - MALIGNANT NEOPLASM OF FRONTAL LOBE SNOMED Code(s): 307115468 (2) Esophageal adenocarcinoma Narrative/Plan: It was discussed with the patient that this finding unfortunately proves stage IV disease. The patient will need to have his [employer] disease treated first prior to resuming systemic therapy. Therefore his chemotherapy will be on hold in the meantime Current Visit: Yes Status: Acute Code(s): C15.9 - MALIGNANT NEOPLASM OF ESOPHAGUS, UNSPECIFIED SNOMED Code(s): 949563595 Plan: Patient's labs showed low WBC of 1.2, due to chemo effect. This could potentially be a complicating factor, if the patient does require surgery the patient should be getting towards the end of his gerardo at this time and hopefully his WBC should start to increase in the next 1 to 2 days. He will be started on filgrastim.
--- NOTE | 2024-03-26 13:35 | P.HPIM ---
History of Present Illness H&P Date: 03/26/24 Chief Complaint: Altered mental status Patient is a 63 year old male with past medical history of esophageal adenocarcinoma diagnosed in 12/2023 with one round of FLOT chemotherapy, gastroesophageal reflux disease, diverticulitis with a colectomy, obstructive sleep apnea not on CPAP presented to the ED with altered mental status. The patient is a poor historian. ED documentation reviewed. His mentation has been altered for 2-3 days and is progressively getting worse. The family mentioned the patient has not been eating or drinking well since a few days and they were worried this could be due to dehydration. His mentions that is normally alert and oriented x4 and that he has been confused for the past 3 days and is behaving atypically of him. The patient answers to yes or no questions and denies any fever, chills, chest pain, palpitations, shortness of breath, cough, abdominal pain, nausea, vomiting, dysuria, hematuria, hematochezia, melena. He is confused and isn't able to provide any history. ED documentation reviewed. In the ED patient was treated with Decadron and 0.9 normal saline. Vitals on admission T 99.3 F, [place] 88, RR 20, BP 117/73, O2 sat 97% on room air EKG independently interpreted as sinus rhythm, poor R wave progression, rate 85 bpm, QTc 438 ms CXR shows no acute cardiopulmonary disease/process Brain CT shows large circumscribed peripherally hyperdense possibly centrally necrotic left frontal lobe mass with extensive surrounding vasogenic edema and associated mass effect and mild rightward midline shift. Metastatic disease/primary brain malignancy VBG shows pH 7.48, pCO2 36, bicarb 27 Labs on admission show WBC 1.4, 14.5, INR 0.9, sodium 137, potassium 3.7, BUN 23, ammonia 21 UA shows trace protein and 1+ ketones Urine toxicology negative, serum alcohol less than 10 Respiratory panel is negative Review of systems: Pertinent positives and negatives as discussed in HPI, a complete review of systems was performed and all other systems are negative. PMH: Metastatic esophageal cancer, GERD, IBAN PSH: Orthopedic surgery FMH: Dementia Social history: Tobacco: Former smoker Alcohol: Occasional Recreational drugs: Denies use Travel: No recent travel history Sick contacts: None Physical examination: Vital signs reviewed General: nontoxic, no distress, appears at stated age Derm: warm, dry, intact Head: atraumatic, normocephalic, symmetric Eyes: EOMI, anicteric sclera Mouth: no lip lesion, mucus membranes moist Cardiovascular: S1 S2 reg, no murmur Lungs: CTA bilateral, no rhonchi, no rales, no accessory muscle use Abdominal: soft, non-tender to palpation Extremities: No cyanosis, clubbing, or pedal edema. Neuro: Alert, Oriented, Gross neurological examination did not reveal any focal deficits. Psych: well appearing, appropriate affect Assessment/Plan: Patient is a 63-year-old male with past medical history of esophageal cancer with metastasis to the left frontal lobe, GERD, IBAN who presented to the ED with altered mental status. He has been started on high dose Decadron for vasogenic edema surrounding the metastatic left frontal lobe mass. Family is counseled on transferring the patient for neurosurgical evaluation. Active: #. Altered mental status #. Stage IV Esophageal adenocarcinoma with metastasis to the left frontal lobe with surrounding vasogenic edema Continue Decadron 6 mg IVP every 6 hours Chemotherapy on hold for now Neurology is following Oncology is following Radiation oncology is consulted #. Leukopenia secondary to chemotherapy Started on Filgrastim 480 mcg SQ daily #. Nausea and vomiting Continue ondansetron 4 mg IVP every 8 hours as needed Chronic: #. Diabetes mellitus Insulin sliding scale and ACHS blood glucose monitoring A1c ordered #. GERD Pantoprazole 40 mg IVP daily F: None E: Replete as required N: Clear liquid diet A: Ambulatory DVT prophylaxis: Lovenox 40 mg SQ daily and SCD GI prophylaxis: Pantoprazole 40 mg IVP daily The patient is admitted with an anticipated more than 2 midnight stay for evaluation of altered mental status CODE STATUS: No code Discussed with: Patient and family Anticipated discharge place: Home Past Medical History Past Medical History: Cancer, GERD/Reflux Additional Past Medical History / Comment(s): diverticulitis, sleep apnea-no CPAP, Esophageal cancer. A-fib NOS 03/05 post mediport History of Any Multi-Drug Resistant Organisms: None Reported Past Surgical History: Orthopedic Surgery Additional Past Surgical History / Comment(s): Colonoscopy, finger reattached from accident, colon resection, Esophageal scopes. Past Anesthesia/Blood Transfusion Reactions: No Reported Reaction Past Psychological History: No Psychological Hx Reported Smoking Status: Former smoker - Past Family History Mother Family Medical History: No Reported History Father Family Medical History: No Reported History Additional Family Medical History / Comment(s): Dementia Medications and Allergies Home Medications Medication Instructions Recorded Confirmed Type Omeprazole [PriLOSEC] 20 mg PO DAILY PRN 03/04/24 03/26/24 History Lidocaine-Prilocaine Cream [Emla 1 applic TOPICAL DAILY PRN 03/26/24 03/26/24 History Cream 2.5%/2.5%] Ondansetron [Zofran] 4 mg PO Q6H PRN 03/26/24 03/26/24 History dexAMETHasone [Decadron] 4 mg PO DIRECTED 03/26/24 03/26/24 History Allergies Allergy/AdvReac Type Severity Reaction Status Date / Time No Known Allergies Allergy Verified 03/26/24 10:41 Physical Exam Vitals: Vital Signs Temp Pulse Resp BP Pulse Ox 03/26/24 07:19 98.0 F 81 18 144/85 94 L 03/26/24 04:22 97.4 F L 87 17 142/89 95 03/26/24 01:58 98.8 F 79 17 145/76 91 L 03/25/24 19:57 98.8 F 85 17 145/76 95 03/25/24 18:52 80 16 144/82 94 L 03/25/24 18:14 99.3 F 88 20 117/73 97 Intake and Output 03/25/24 03/26/24 03/26/24 22:59 06:59 14:59 Other: Weight 97.976 kg Results CBC & Chem 7: 03/26/24 06:42 03/26/24 06:42 Labs: Abnormal Lab Results - Last 24 Hours (Table) 03/25/24 03/25/24 03/25/24 Range/Units 18:44 18:44 18:44 WBC 1.4 L* (3.8-10.6) k/uL Neutrophils # (Manual) 0.50 L (1.3-7.7) k/uL Lymphocytes # (1.0-4.8) k/uL Lymphocytes # (Manual) 0.59 L (1.0-4.8) k/uL VBG pH 7.48 H (7.31-7.41) VBG pCO2 36 L (37-51) mmHg Sodium (137-145) mmol/L BUN 23 H (9-20) mg/dL Glucose 130 H (74-99) mg/dL Urine Protein (Negative) Urine Ketones (Negative) 03/26/24 03/26/24 03/26/24 Range/Units 01:56 06:42 06:42 WBC 1.2 L* (3.8-10.6) k/uL Neutrophils # (Manual) (1.3-7.7) k/uL Lymphocytes # 0.6 L (1.0-4.8) k/uL Lymphocytes # (Manual) (1.0-4.8) k/uL VBG pH (7.31-7.41) VBG pCO2 (37-51) mmHg Sodium 136 L (137-145) mmol/L BUN (9-20) mg/dL Glucose 150 H (74-99) mg/dL Urine Protein Trace H (Negative) Urine Ketones 1+ H (Negative)
[2024-03-26] MEDS ORDERED: ALPRAZolam 1 MG TAB PO PRN (16:33)
[2024-03-26] MEDS: ALPRAZolam 1 MG TAB PO STA (16:45)
[2024-03-26 17:03] LABS: Glucose,Whole Blood 145 mg/dL (70-110)
--- NOTE | 2024-03-26 17:22 | P.DS ---
Providers Date of admission: 03/25/24 21:29 Expected date of discharge: 03/26/24 Attending physician: Nidhi Winn Consults: 03/25/24 21:27 Consult Physician Routine Consulting Provider: Geoffrey Smith Consult Reason/Comments: brain malignancy with edeam and midline shift. 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 he patient is a poor historian. ED documentation reviewed. His mentation has been altered for 2-3 days and is progressively getting worse. The family mentioned the patient has not been eating or drinking well since a few days and they were worried this could be due to dehydration. His mentions that is normally alert and oriented x4 and that he has been confused for the past 3 days and is behaving atypically of him. The patient answers to yes or no questions and denies any fever, chills, chest pain, palpitations, shortness of breath, cough, abdominal pain, nausea, vomiting, dysuria, hematuria, hematochezia, melena. He is confused and isn't able to provide any history. Vitals on admission T 99.3 F, NH 88, RR 20, BP 117/73, O2 sat 97% on room air EKG independently interpreted as sinus rhythm, poor R wave progression, rate 85 bpm, QTc 438 ms. CXR shows no acute cardiopulmonary disease/process. Brain CT shows large circumscribed peripherally hyperdense possibly centrally necrotic left frontal lobe mass with extensive surrounding vasogenic edema and associated mass effect and mild rightward midline shift. Metastatic disease/primary brain malignancy. VBG shows pH 7.48, pCO2 36, bicarb 27. Labs on admission show WBC 1.4, 14.5, INR 0.9, sodium 137, potassium 3.7, BUN 23, ammonia 21. UA shows trace protein and 1+ ketones. Urine toxicology negative, serum alcohol less than 10. Respiratory panel is negative. In the ED patient was treated with Decadron and 0.9 normal saline. Neurology and Oncology were consulted. The patient was started on Decadron 6 mg IVP Q6HR as well as Filgrastim 480 mcg SQ daily. -The family were overall reluctant for transfer and it was therefore decided to start him on high-dose steroids and then reassess response. The patient has had significant improvement, but still has ongoing deficits as described in the physical exam and HPI. Case was discussed with radiation oncology, who evaluated his scan. They felt that if the patient has not improved fully with steroids, and family was willing, then he should have a neurosurgical evaluation and MRI -The above was discussed with the patient and his who are at the bedside in detail. They were advised that if transfer does not definitively mean that the patient will have surgery. That would have to be a decision by the neurosurgeon. If he is felt to require surgery and is an appropriate candidate for the same, and he would proceed with that, and then have radiation. If surgery is not felt to be required, then he would start radiation and then subsequently a steroid taper. Based on our discussion, there were subsequently willing for transfer for neurosurgical evaluation. This was discussed in detail with the admitting service, who will initiate the transfer. -The patient needs MRI for more comprehensive evaluation of the brain. It was felt by neurology, and they evaluated him earlier today, that he likely would not be able to cooperate with the MRI given his altered mentation. The patient does seem more cooperative, but his family is still not certain if he would be able to lay still for the time required to complete the MRI. Since transfer is being initiated, he would hold off on ordering the study if this will happen in the near future. In that case it can be done at the receiving institution. Patient's family is now agreeable for the transfer. Patient will be transferred to [facility]. The accepting physician is Dr. Sera Mann and neurosurgeon is Dr. Jeffries. He has been accepted for the transfer at [facility]. Patient is stable for the transfer. Vital signs are reviewed and stable General: nontoxic, no distress, appears at stated age Derm: warm, dry, intact Head: atraumatic, normocephalic, symmetric Eyes: EOMI, anicteric sclera Mouth: no lip lesion, mucus membranes moist Cardiovascular: S1 S2 reg, no murmur Lungs: CTA bilateral, no rhonchi, no rales, no accessory muscle use Abdominal: soft, non-tender to palpation Extremities: No cyanosis, clubbing, or pedal edema. Neuro: Alert, Not oriented Gross neurological examination did not reveal any focal deficits. Psych: well appearing, appropriate affect A total of 30 minutes of time were spent preparing this complex discharge summary. Patient was discharged on 03/26/24. Patient Condition at Discharge: Serious Plan - Discharge Summary New Discharge Prescriptions: No Action Ondansetron [Zofran] 4 mg PO Q6H PRN PRN Reason: Nausea dexAMETHasone [Decadron] 4 mg PO DIRECTED Omeprazole [PriLOSEC] 20 mg PO DAILY PRN PRN Reason: Heartburn Lidocaine-Prilocaine Cream [Emla Cream 2.5%/2.5%] 1 applic TOPICAL DAILY PRN PRN Reason: port access Discharge Medication List Omeprazole [PriLOSEC] 20 mg PO DAILY PRN 03/04/24 [History] Lidocaine-Prilocaine Cream [Emla Cream 2.5%/2.5%] 1 applic TOPICAL DAILY PRN 03/26/24 [History] Ondansetron [Zofran] 4 mg PO Q6H PRN 03/26/24 [History] dexAMETHasone [Decadron] 4 mg PO DIRECTED 03/26/24 [History] Follow up Appointment(s)/Referral(s): Mata Monzon MD [Primary Care Provider] - 1-2 days
[2024-03-26] MEDS: FILGRASTIM-SNDZ 480 MCG/0.8 ML SYRINGE SQ SCH (17:44)
[2024-03-26 19:52] LABS: Glucose,Whole Blood 278 mg/dL (70-110)
[2024-03-26 20:42] VITALS: BP 135/79; PULSE 83; RESP 17; TEMP 97.9
[2024-03-27] MEDS ORDERED: PANTOPRAZOLE 40 MG/10 ML VIAL IVP SCH (09:00)
[2024-03-27] MEDS ORDERED: ENOXAPARIN 40 MG/0.4 ML SYRINGE SQ SCH (09:00)
--- NOTE | 2024-03-31 12:11 | CDI ---
Documentation Clarification Form Date: 03/31/2024 11:58:57 AM From: Radha Cole Admit Date: 03/25/2024 09:29:00 PM Patient Name: Ghanshyam Elizabeth Visit Number: [id number] Discharge Date: 03/26/2024 08:10:00 PM SMDX QUERY ATTENTION: The Clinical Documentation Specialists (CDI) and [facility] Coding Staff appreciate your assistance in clarifying documentation. Please respond to the clarification below the line at the bottom and electronically sign. The CDI & [facility] Coding staff will review the response and follow-up if needed. Please note: Queries are made part of the Legal Health Record. If you have any questions, please contact the author of this message via ITS. Doctor/Provider: Walker Naylor, Your patient has Stage IV esophageal adenocarcinoma with metastasis to the left frontal lobe with surrounding vasogenic edema per the discharge summary. Per the consult by Lico Reyes Theredid not appearto be any obvious brainstem compressionbut there was somecompressionon the lateral horn of the left lateral ventricle. Based on this information and the findings below, is there an additional diagnosis that is clinically appropriate for this patient? Patient history/risk factors: Esophageal cancer possible liver mets on chemotherapy Clinical Indicators: AMS. CT revealed necrotic left frontal lobe mass. CT: Large circumscribed peripherally hyperdensepossiblycentrallynecroticleft frontal lobe massmeasuring 3.0 x 3.3 x 3.5 cm with extensive surrounding vasogenic edemaand associatedmasseffect and mild rightward midline shift as described above. Treatment: Managed withdexamethasone6 mg every 6 hoursfollow-up following a 20 mg bolus last night in the emergency room. Is there an additional diagnosis that is clinically appropriate for this patient? [x ] Mass effect causing brain compression [ ] Mass effect not clinical significant [ ] No additional diagnosis/not clinically significant [ ] Unable to determine [ ] Other, please specify MTDD
== END 2024-03-26 20:10 | disposition short-term general hospital (02) | DRG 41 ==
LOC: EC 17:58 → 3SCARD 21:29 → 5NMEDONC 03-26 12:18
PROVIDERS: ADMIT Internal Medicine; ATTEND Internal Medicine
DX: C79.31 Secondary malignant neoplasm of brain (principal); G93.6 Cerebral edema; G93.5 Compression of brain; D70.1 Agranulocytosis secondary to cancer chemotherapy; C15.9 Malignant neoplasm of esophagus, unspecified; C77.2 Secondary and unspecified malignant neoplasm of intra-abdominal lymph nodes; C78.7 Secondary malignant neoplasm of liver and intrahepatic bile duct; I48.91 Unspecified atrial fibrillation; K21.9 Gastro-esophageal reflux disease without esophagitis; E11.9 Type 2 diabetes mellitus without complications; R15.9 Full incontinence of feces; G47.33 Obstructive sleep apnea (adult) (pediatric); R32 Unspecified urinary incontinence; R11.2 Nausea with vomiting, unspecified; T45.1X5A Adverse effect of antineoplastic and immunosuppressive drugs, initial encounter; Z28.310 Unvaccinated for COVID-19; Z28.21 Immunization not carried out because of patient refusal; Z90.49 Acquired absence of other specified parts of digestive tract; Z87.891 Personal history of nicotine dependence; Z92.21 Personal history of antineoplastic chemotherapy; Z11.52 Encounter for screening for COVID-19; Z79.899 Other long term (current) drug therapy
CPT/HCPCS: 36415; 70450; 71046; 80053; 80306; 80320; 81003; 82140; 82803; 83605; 85025; 85610; 85730; 87636; 93005; 96361; 96374; 96375; 96376; 99291

== ENCOUNTER → 2024-04-14 | Outpatient (CLI) | payer OTHER ==
--- NOTE | 2024-04-14 12:32 | MR ---
EXAMINATION TYPE: MR brain wo/w con DATE OF EXAM: 04/14/2024 12:00 PM COMPARISON: CT 03/17/2024.. CLINICAL INDICATION: Male, 63 years old with history of C15.5 MALIGNANT NEOPLASM OF LOWER THIRD OF ES OPHAG; PHH, Esophageal cancer, recent brain tumor resection. TECHNIQUE: Multi planar, multi sequence imaging was performed through the brain including: T1, T2, In version recovery, susceptibility weighted imaging and gradient echo imaging and Diffusion weighted im aging. The patient was then given intravenous contrast and multi planar, T1 fat-saturation images wer e obtained. IV Contrast: 9 mL Gadobutrol FINDINGS: Left frontal lobe heterogenous area with surrounding vasogenic edema and evidence of hemorr kerline on susceptibility weighted imaging. This area measures roughly 51 x 32 x 36 mm. There is enhance ment in this region most pronounced along the periphery and most pronounced towards the posterior asp ect. Enhancement of the dura along the surgical bed also noted. No additional abnormal enhancement id entified. No evidence for acute/subacute CVA. Scattered foci of high T2/FLAIR signal in the white matter throug hout the brain. The bone marrow signal is procedural changes to the left lateral scalp. Paranasal sinuses and mastoid air cells: Mild scattered paranasal sinus disease. Visualized orbits: Orbital contents are intact. IMPRESSION: 1. Left frontal lobe mass like area with enhancement and surrounding vasogenic edema given recent ruano rgical change finding could represent surgical changes with persistent tumor in the differential. Vickie veillance imaging recommended. 2. Scattered nonspecific white matter changes. [facility], , 04/14/2024 12:30 PM
== END | disposition home or self-care (01) ==
LOC: RADMRIMAIN 11:16
PROVIDERS: ATTEND Radiology Radiation Oncology
DX: C15.5 Malignant neoplasm of lower third of esophagus (principal); C71.1 Malignant neoplasm of frontal lobe; R90.82 White matter disease, unspecified
CPT/HCPCS: 70553; A9585

== ENCOUNTER → 2024-07-01 | Outpatient (CLI) | payer OTHER ==
--- NOTE | 2024-07-01 13:58 | MR ---
EXAMINATION TYPE: MR brain wo/w con DATE OF EXAM: 07/01/2024 1:27 PM COMPARISON: 04/14/2024. CLINICAL INDICATION: Male, 64 years old with history of C15.5 esophageal ca; PHH, Esophageal cancer, brain cancer, f/u post treatment TECHNIQUE: Multi planar, multi sequence imaging was performed through the brain including: T1, T2, In version recovery, susceptibility weighted imaging and gradient echo imaging and Diffusion weighted im aging. The patient was then given intravenous contrast and multi planar, T1 fat-saturation images wer e obtained. IV Contrast: 9 mL Gadobutrol FINDINGS: Posttreatment changes left frontal lobe with craniotomy.. Resection bed measuring roughly 3 8 x 29 mm previously this area was 51 x 32 mm. Surrounding vasogenic edema has decreased from prior. There remains some enhancement along the dura along the abdominal aorta along the periphery of this l esion. No new evidence of metastatic disease. The allen-white junctions, ventricular system, basal cis terns appear unremarkable. Diffusion-weighted imaging shows no evidence of restricted diffusion to s uggest acute/subacute infarct. Intracranial arterial flow voids are maintained. Midline structures sh ow no abnormality. The susceptibility weighted images do not reveal any evidence for micro-hemorrhage . The bone marrow signal is within normal limits. Paranasal sinuses and mastoid air cells: Mild scattered paranasal sinus disease. Visualized orbits: Orbital contents are intact. IMPRESSION: 1. Posttreatment changes with decrease in vasogenic edema in size of left frontal lobe metastatic di sease. Continued surveillance recommended given some peripheral enhancement which could be secondary to recent surgical prevention. No new areas of metastatic disease definitively visualized. 2. Nonspecific white matter changes. [facility], , 07/01/2024 1:56 PM
== END | disposition home or self-care (01) ==
LOC: RADMRIMAIN 12:33
PROVIDERS: ATTEND Radiology Radiation Oncology
DX: C15.5 Malignant neoplasm of lower third of esophagus (principal); C79.31 Secondary malignant neoplasm of brain; R90.82 White matter disease, unspecified
CPT/HCPCS: 70553; A9585

== ENCOUNTER → 2024-07-01 | Outpatient (CLI) | payer OTHER ==
[2024-07-01 14:06] LABS: Blood Urea Nitrogen 5 mg/dL (9-20)
[2024-07-01 14:07] LABS: African American GFR (CKD) >90 (>60 ml/min/1.73 sqM); Non-African American GFR(CKD) >90 (>60 ml/min/1.73 sqM)
--- NOTE | 2024-07-02 13:05 | CT ---
EXAMINATION TYPE: CT ChestAbdPelvis w con DATE OF EXAM: 07/01/2024 COMPARISON: Prior PET/CT February 06, 2024 and older studies CLINICAL INDICATION: Male, 64 years old with history of C15.5 esophageal ca, f/u esophageal ca, TECHNIQUE: CT scan of the thorax, abdomen and pelvis is performed with oral and with IV Contrast, patient inject ed with 100 mL of Isovue 300. CT DLP: 1708 mGycm. Automated Exposure Control for Dose Reduction was Utilized. FINDINGS: LUNGS: The lungs are grossly clear, there is no concerning parenchymal mass or focal consolidation id entified. There is no pleural effusion or pneumothorax seen. The tracheobronchial tree is patent. HEART: Size within normal limits. Moderate coronary artery calcifications are redemonstrated. MEDIASTINUM: There are no greater than 1 cm hilar or mediastinal lymph nodes. No pericardial effusi on is seen. Mild wall thickening distal esophagus just above diaphragm remains present. OTHER: There is new right-sided subclavian Mediport catheter terminating at the cavoatrial junction. LIVER/GB: Liver is heterogeneously hypodense consistent with diffuse fatty infiltrative hepatocellula r disease. Internal gallstones are present inferiorly PANCREAS: No significant abnormality is seen. SPLEEN: No significant abnormality is seen. ADRENALS: No significant abnormality is seen. KIDNEYS: No significant abnormality is seen. BOWEL: Oral contrast reaches the rectum. Surgical changes in the sigmoid colon with [id number] wall thickening is present in the pelvis. No abnormal small or large bowel dilatation. GENITAL ORGANS: No gross abnormality seen. LYMPH NODES: No greater than 1cm abdominal or pelvic lymph nodes are appreciated. No suspicious adeno ammy in the upper abdomen OSSEOUS STRUCTURES: Scoliotic curvature is seen. Multilevel spurring and disc space narrowing in the spine is present. OTHER: No significant additional abnormality is seen. IMPRESSION: Primary neoplasm distal esophagus into proximal stomach less well seen on CT versus recen t PET/CT. No new suspicious masses or adenopathy identified to suggest new metastatic disease. [facility], , 07/02/2024 1:02 PM
== END | disposition home or self-care (01) ==
LOC: RADCTMAIN 12:38
PROVIDERS: ATTEND Internal Medicine Hematology & Oncology
DX: C15.5 Malignant neoplasm of lower third of esophagus (principal)
CPT/HCPCS: 82565; 84520; 71260; 74177; 36415; Q9967

== ENCOUNTER → 2024-08-03 | Outpatient (CLI) | payer OTHER ==
--- NOTE | 2024-08-04 07:01 | CA ---
Transthoracic Echo Report Name: Ghanshyam Elizabeth Age: 64 Gender: M : 1960 Exam Date: 08/03/2024 13:24 Exam Location: [facility] Ht (in): 71 Wt (lb): 189 Ordering Physician: Geoffrey Smith MD Attending/Referring Phys: Geoffrey Smith MD [employer] Shiraz Quintana RDCS Procedure CPT: Indications: Z01.818 ENCOUNTER FOR OTHER PREPROCEDURAL EXAMINAT Cardiac Hx: Technical Quality: Good Contrast 1: Total Dose (mL): Contrast 2: Total Dose (mL): MEASUREMENTS (Male / Female) Normal Values 2D ECHO LV Diastolic Diameter PLAX 4.7 cm 4.2 - 5.9 / 3.9 - 5.3 cm LV Systolic Diameter PLAX 3.4 cm IVS Diastolic Thickness 1.0 cm 0.6 - 1.0 / 0.6 - 0.9 cm LVPW Diastolic Thickness 0.9 cm 0.6 - 1.0 / 0.6 - 0.9 cm LV Relative Wall Thickness 0.4 RV Internal Dim ED PLAX 2.5 cm LVOT Diameter 1.8 cm LA Systolic Diameter LX 3.1 cm 3.0 - 4.0 / 2.7 - 3.8 cm LV Diastolic Volume MOD BP 99.4 cm??? 67 - 155 / 56 - 104 cm??? LV Systolic Volume MOD BP 46.7 cm??? 22 - 58 / 19 - 49 cm??? LV Ejection Fraction MOD BP 53.0 % >= 55 % LV Diastolic Volume MOD 4C 109.2 cm??? LV Systolic Volume MOD 4C 54.4 cm??? LV Ejection Fraction MOD 4C 50.2 % LV Diastolic Length 4C 8.0 cm LV Systolic Length 4C 6.8 cm LV Diastolic Volume MOD 2C 88.5 cm??? LV Systolic Volume MOD 2C 35.7 cm??? LV Ejection Fraction MOD 2C 59.6 % LV Diastolic Length 2C 8.2 cm LV Systolic Length 2C 6.0 cm LA Volume 50.6 cm??? 18 - 58 / 22 - 52 cm??? LA Volume Index 24.3 cm???/m??? 16 - 28 cm???/m??? DOPPLER MV Area PHT 2.9 cm??? Mitral E Point Velocity 58.3 cm/s Mitral A Point Velocity 79.3 cm/s Mitral E to A Ratio 0.7 MV Deceleration Time 258.8 ms FINDINGS Left Ventricle Left ventricular ejection fraction is estimated at 45-50 %. Mildly decreased left ventricular ejection fraction. Normal Left ventricular size, wall thickness, systolic function with no obvious regional wall motion abnormalities.left ventricular wall thickness normal. Right Ventricle Normal right ventricular size and function. Unable to estimate the right ventricular systolic pressure. Right Atrium Normal right atrial size. Left Atrium Normal left atrial size. Mitral Valve Mitral annular calcification. No mitral stenosis. No mitral regurgitation. Aortic Valve Trileaflet aortic valve. Diffuse thickening (sclerosis) of the aortic valve cusps without reduced excursion. No aortic stenosis. No aortic regurgitation. Tricuspid Valve Structurally normal tricuspid valve. No tricuspid stenosis. No tricuspid regurgitation. Pulmonic Valve Structurally normal pulmonic valve. No pulmonic regurgitation. No pulmonic stenosis. Pericardium Small pericardial effusion. Aorta Normal size aortic root and proximal ascending aorta. CONCLUSIONS Mildly impaired LV function with EF between 45 to 50% Aortic sclerosis Small pericardial effusion Previewed by: Dr. Kamlesh Wild MD (Electronically Signed) Final Date: 04 August 2024 07:00
== END | disposition home or self-care (01) ==
LOC: RADECHMAIN 12:41
PROVIDERS: ATTEND Internal Medicine Hematology & Oncology
DX: Z01.818 Encounter for other preprocedural examination (principal); C15.5 Malignant neoplasm of lower third of esophagus; I70.0 Atherosclerosis of aorta; I31.39 Other pericardial effusion (noninflammatory); Z71.3 Dietary counseling and surveillance
CPT/HCPCS: 93306

== ENCOUNTER 2024-09-20 04:16 | Emergency (ER) | payer OTHER ==
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
[2024-09-20] MEDS: BACITRACIN OINT 1 EACH PACKET TOPICAL ONE (05:37)
[2024-09-20 05:46] VITALS: BP 107/70; PULSE 87; RESP 16; TEMP 98.5
== END 2024-09-20 05:43 | disposition home or self-care (01) ==
LOC: EC 04:16
DX: T21.24XA Burn of second degree of lower back, initial encounter (principal); T31.0 Burns involving less than 10% of body surface; Z87.891 Personal history of nicotine dependence; X19.XXXA Contact with other heat and hot substances, initial encounter; Y92.009 Unspecified place in unspecified non-institutional (private) residence as the place of occurrence of the external cause
CPT/HCPCS: 99283

== ENCOUNTER 2024-10-10 15:35 | Emergency (ER) | payer OTHER ==
--- NOTE | 2024-10-10 16:35 | ED ---
General Adult HPI - General Chief complaint: Recheck/Abnormal Lab/Rx Stated complaint: Difficulty eating, cancer Time Seen by Provider: 10/10/24 15:52 Source: patient, RN notes reviewed Mode of arrival: ambulatory Limitations: no limitations - History of Present Illness Initial comments: This is a 64-year-old male with history including esophageal cancer and GERD presenting for dehydration. Patient states he recently finished radiation sarah tment with Dr. Smith for his lower esophageal cancer about 6 days ago, recently developing difficulty eating/drinking. Patient states food/water "gets stuck" causing vomiting. Patient endorses dizziness with positional change. States he has a follow-up appointment tomorrow for further evaluation of his current symptoms but feels he cannot wait until then due to feeling of dehydration. Denies fever, chills, chest pain, dyspnea, abdominal pain, nausea, diarrhea, constipation, hematemesis. Onset/Timin -: days(s) - Related Data Home Medications Medication Instructions Recorded Confirmed Omeprazole [PriLOSEC] 20 mg PO DAILY PRN 03/04/24 03/26/24 Lidocaine-Prilocaine Cream [Emla 1 applic TOPICAL DAILY PRN 03/26/24 03/26/24 Cream 2.5%/2.5%] Ondansetron [Zofran] 4 mg PO Q6H PRN 03/26/24 03/26/24 dexAMETHasone [Decadron] 4 mg PO DIRECTED 03/26/24 03/26/24 Previous Rx's Medication Instructions Recorded Bacitracin Zinc Oint 1 applic TOPICAL BID #28 gm 09/20/24 Allergies Allergy/AdvReac Type Severity Reaction Status Date / Time No Known Allergies Allergy Verified 10/10/24 15:48 Review of Systems ROS Statement: Those systems with pertinent positive or pertinent negative responses have been documented in the HPI. ROS Other: All systems not noted in ROS Statement are negative. Past Medical History Past Medical History: Cancer, GERD/Reflux Additional Past Medical History / Comment(s): diverticulitis, sleep apnea-no CPAP, Esophageal cancer. A-fib NOS 03/05 post mediport History of Any Multi-Drug Resistant Organisms: None Reported Past Surgical History: Orthopedic Surgery Additional Past Surgical History / Comment(s): Colonoscopy, finger reattached from accident, colon resection, Esophageal scopes. Past Anesthesia/Blood Transfusion Reactions: No Reported Reaction Past Psychological History: No Psychological Hx Reported Smoking Status: Former smoker Past Alcohol Use History: Occasional Past Drug Use History: None Reported - Past Family History Mother Family Medical History: No Reported History Father Family Medical History: No Reported History Additional Family Medical History / Comment(s): Dementia General Exam Limitations: no limitations General appearance: alert, in no apparent distress Head exam: Present: atraumatic, normocephalic, normal inspection Eye exam: Present: normal appearance, PERRL, EOMI. Absent: scleral icterus, conjunctival injection, periorbital swelling ENT exam: Present: normal exam, normal oropharynx (Negative oropharyngeal edema, erythema), mucous membranes moist Neck exam: Present: normal inspection. Absent: tenderness, meningismus, lymphadenopathy Respiratory exam: Present: normal lung sounds bilaterally. Absent: respiratory distress, wheezes, rales, rhonchi, stridor, accessory muscle use, decreased breath sounds, prolonged expiratory Cardiovascular Exam: Present: regular rate, normal rhythm, normal heart sounds. Absent: systolic murmur, diastolic murmur, rubs, gallop, clicks GI/Abdominal exam: Present: soft, normal bowel sounds. Absent: distended, tenderness, guarding, rebound, rigid Extremities exam: Present: normal inspection, full ROM, normal capillary refill. Absent: tenderness, pedal edema, joint swelling, calf tenderness Back exam: Present: normal inspection Neurological exam: Present: alert, oriented X3, CN II-XII intact Psychiatric exam: Present: normal affect, normal mood Skin exam: Present: warm, dry, intact, normal color. Absent: rash Course Vital Signs 10/10/24 10/10/24 10/10/24 15:46 16:26 17:20 Temperature 98.9 F 99.3 F Pulse Rate 95 94 71 Respiratory 20 18 16 Rate Blood Pressure 102/62 110/62 117/63 O2 Sat by Pulse 99 99 100 Oximetry 10/10/24 18:33 Temperature 98.6 F Pulse Rate 95 Respiratory 18 Rate Blood Pressure 109/60 O2 Sat by Pulse 96 Oximetry Medical Decision Making - Medical Decision Making Was pt. sent in by a medical professional or institution (, PA, BRINE ROOM LABORER, urgent care, hospital, or long term...) When possible be specific @ -[No] Did you speak to anyone other than the patient for history (EMS, parent, family, police, friend...)? What history was obtained from this source @ -[No] Did you review nursing and triage notes (agree or disagree)? Why? @ -[I reviewed and agree with nursing and triage notes] Were old charts reviewed (outside hosp., previous admission, EMS record, old EKG, old radiological studies, urgent care reports/EKG's, long term records)? Report findings @ -[No old charts were reviewed] Differential Diagnosis (chest pain, altered mental status, abdominal pain women, abdominal pain men, vaginal bleeding, weakness, fever, dyspnea, syncope, headache, dizziness, GI bleed, back pain, seizure, CVA, palpatations, mental he alth, musculoskeletal)? @ -Differential Abdominal Pain Men: Appendicitis, cholecystitis, diverticulosis, ischemic bowel, pancreatitis, hepatitis, UTI, gastroenteritis, AAA, incarcerated hernia, bowel obstruction, constipation, inflammatory bowel, hepatitis, peptic ulcer disease, splenic infarction, perforated viscus, testicular torsion, this is not meant to be an all-inclusive list EKG interpreted by me (3pts min.). @ -Not done X-rays interpreted by me (1pt min.). @ -[None done] CT interpreted by me (1pt min.). @ -[None done] U/S interpreted by me (1pt. min.). @ -[None done] What testing was considered but not performed or refused? (CT, X-rays, U/S, labs)? Why? @ -Patient declined p.o. challenge, stating he has viscous fluids to drink at home. States he also has follow-up appointment tomorrow for further evaluation and management. What meds were considered but not given or refused? Why? @ -[None] Did you discuss the management of the patient with other professionals (professionals i.e. , PA, BRINE ROOM LABORER, lab, RT, psych nurse, social insurance analyst, thermodynamicist, teacher, business practices officer, showcase trimmer)? Give summary @ -[No] Was smoking cessation discussed for >3mins.? @ -[No] Was critical care preformed (if so, how long)? @ -[No] Were there social determinants of health that impacted care today? How? (Homelessness, low income, unemployed, alcoholism, drug addiction, transportation, low edu. Level, literacy, decrease access to med. care, [facility], rehab)? @ -[No] Was there de-escalation of care discussed even if they declined (Discuss DNR or withdrawal of care, Hospice)? DNR status @ -[No] What co-morbidities impacted this encounter? (DM, HTN, Smoking, COPD, CAD, Cancer, CVA, ARF, Chemo, Hep., AIDS, mental health diagnosis, sleep apnea, morbid obesity)? @ -[None] Was patient admitted / discharged? Hospital course, mention meds given and route, prescriptions, significant lab abnormalities, going to OR and other pertinent info. @ -[hospital course] Undiagnosed new problem with uncertain prognosis? @ -[No] Drug Therapy requiring intensive monitoring for toxicity (Heparin, Nitro, Insulin, Cardizem)? @ -[No] Were any procedures done? @ -[No] Diagnosis/symptom? @ -Dysphagia, hypokalemia Acute, or Chronic, or Acute on Chronic? @ -Acute Uncomplicated (without systemic symptoms) or Complicated (systemic symptoms)? @ -Uncomplicated Side effects of treatment? @ -[No] Exacerbation, Progression, or Severe Exacerbation? @ -[No] Poses a threat to life or bodily function? How? (Chest pain, USA, [place], pneumonia, PE, COPD, DKA, ARF, appy, cholecystitis, CVA, Diverticulitis, Homicidal, Suicidal, threat to staff... and all critical care pts) @ -[No] - Lab Data Result diagrams: 10/10/24 16:58 10/10/24 16:58 Lab Results 10/10/24 10/10/24 Range/Units 16:58 16:58 WBC 3.31 L (4.50-10.00) 10*3/uL RBC 3.39 L (4.40-5.60) 10*6/uL Hgb 10.7 L (13.0-17.0) g/dL Hct 29.9 L (39.6-50.0) % MCV 88.2 (80.0-97.0) fL MCH 31.6 (27.0-32.0) pg MCHC 35.8 (32.0-37.0) g/dL Plt Count 83 L (140-440) 10*3/uL MPV 10.0 (9.5-12.2) fL Immature Gran % (Auto) 0.3 % Neutrophils % (Manual) 57 % Lymphocytes % (Manual) 37 % Monocytes % (Manual) 3 % Eosinophils % (Manual) 1 % Basophils % (Manual) 1 % Metamyelocytes % 3 % Myelocytes % 1 % Immature Gran # 0.01 (0.00-0.04) 10*3/uL Neutrophils # (Manual) 1.89 (1.3-7.7) k/uL Lymphocytes # (Manual) 1.22 (1.0-4.8) k/uL Monocytes # (Manual) 0.10 (0-1.0) k/uL Eosinophils # (Manual) 0.03 (0-0.7) k/uL Basophils # (Manual) 0.03 (0-0.2) k/uL Metamyelocytes # (Man) 0.10 H (0) k/uL Myelocytes # (Manual) 0.03 H (0) k/uL Nucleated RBCs 0 (0-0) /100 WBC Manual Slide Review Performed Sodium 134 L (137-145) mmol/L Potassium 2.9 L (3.5-5.1) mmol/L Chloride 94 L (98-107) mmol/L Carbon Dioxide 28 (22-30) mmol/L Anion Gap 12 mmol/L BUN 21 H (9-20) mg/dL Creatinine 0.68 (0.66-1.25) mg/dL Est GFR (CKD-EPI)AfAm >90 (>60 ml/min/1.73 sqM) Est GFR (CKD-EPI)NonAf >90 (>60 ml/min/1.73 sqM) Glucose 78 (74-99) mg/dL Calcium 9.3 (8.4-10.2) mg/dL Total Bilirubin 1.3 (0.2-1.3) mg/dL AST 49 (17-59) U/L ALT 40 (4-49) U/L Alkaline Phosphatase 71 (38-126) U/L Total Protein 5.9 L (6.3-8.2) g/dL Albumin 3.7 (3.5-5.0) g/dL Disposition Clinical Impression: Hypokalemia, Dehydration, Dysphagia Disposition: HOME SELF-CARE Condition: Fair Instructions (If sedation given, give patient instructions): Dysphagia (ED) Additional Instructions: Follow-up for scheduled appointment tomorrow for further evaluation and management of difficulty swallowing. Is patient prescribed a controlled substance at d/c from ED?: No Referrals: Mata Monzon MD [Primary Care Provider] - 1-2 days Time of Disposition: 18:02
[2024-10-10] MEDS: SODIUM CHLORIDE 0.9% 1,000 ML IV STA (16:55)
[2024-10-10 17:08] LABS: HCT 29.9 % (39.6-50.0); HGB 10.7 g/dL (13.0-17.0); MCH 31.6 pg (27.0-32.0); MCHC 35.8 g/dL (32.0-37.0); MCV 88.2 fL (80.0-97.0); RBC 3.39 10*6/uL (4.40-5.60); RDW 14.1 % (11.5-14.5); WBC 3.31 10*3/uL (4.50-10.00)
[2024-10-10] MEDS: FAMOTIDINE 20 MG/2 ML VIAL IV STA (17:16)
[2024-10-10] MEDS: PANTOPRAZOLE 40 MG/10 ML VIAL IVP STA (17:16)
[2024-10-10 17:32] LABS: ALT 40 U/L (4-49); AST 49 U/L (17-59); African American GFR (CKD) >90 (>60 ml/min/1.73 sqM); Albumin 3.7 g/dL (3.5-5.0); Alkaline Phosphatase 71 U/L (38-126); Anion Gap 12 mmol/L; Blood Urea Nitrogen 21 mg/dL (9-20); Calcium 9.3 mg/dL (8.4-10.2); Carbon Dioxide 28 mmol/L (22-30); Chloride 94 mmol/L (98-107); Glucose 78 mg/dL (74-99); Non-African American GFR(CKD) >90 (>60 ml/min/1.73 sqM); Potassium 2.9 mmol/L (3.5-5.1); Sodium 134 mmol/L (137-145); Total Bilirubin 1.3 mg/dL (0.2-1.3); Total Protein 5.9 g/dL (6.3-8.2)
[2024-10-10] MEDS: POTASSIUM CHLORIDE ER 20 MEQ TAB.ER PO STA ×2 (18:12→18:13)
[2024-10-10 18:34] VITALS: RESP 18; TEMP 98.6
[2024-10-10] MEDS: POTASSIUM CHLORIDE 20 MEQ in WATER FOR INJECTION 1 100ML.BAG IVPB SCH (18:58)
[2024-10-10 18:59] LABS: Basophils # (M) 0.03 k/uL (0-0.2); Eosinophils # (M) 0.03 k/uL (0-0.7); Lymphocytes # (M) 1.22 k/uL (1.0-4.8); Metamyelocytes % 3 %; Myelocytes # (M) 0.03 k/uL (0); Myelocytes % 1 %; Neutrophils # (M) 1.89 k/uL (1.3-7.7); Neutrophils % (M) 57 %; Nucleated Red Blood Cells 0 /100 WBC (0-0); Total Cells Counted 200
[2024-10-10 19:00] LABS: Platelet Count 83 10*3/uL (140-440)
[2024-10-10 23:23] VITALS: BP 112/72; PULSE 86
== END 2024-10-10 23:24 | disposition home or self-care (01) ==
LOC: EC 15:35
DX: E87.6 Hypokalemia (principal); E86.0 Dehydration; R13.10 Dysphagia, unspecified; Z87.891 Personal history of nicotine dependence
CPT/HCPCS: 36415; 80053; 85025; 99283; 96365; 96366; 96375 ×4; 96361; J3480; J1642; J2470; J1308

== ENCOUNTER → 2024-11-02 | Outpatient (CLI) | payer OTHER ==
--- NOTE | 2024-11-03 11:28 | MR ---
INDICATION: Patient age:Male; 64 years old; Reason for study: C15.5; [facility]. COMPARISON: MRI brain 07/01/2024, 04/14/2024, CT brain 03/25/2024. TECHNIQUE: Multi planar, multi sequence imaging was performed through the brain. The patient was then given 8 cc of Gadobutrol intravenously and multi planar, T1 fat-saturation images were obtained. FINDINGS: Posttreatment changes left frontal lobe with craniotomy in initiation. Moderate decrease in size of lobulated resection bed measuring 3.6 x 2.4 cm. Previously 3.8 x 2.9 cm. There is continued heterogenous enhancement along the periphery of the lesion with some internal septal type enhancement . Adjacent dural enhancement demonstrated. Increasing surrounding vasogenic edema along the anterior aspect in the frontal lobe. There is associated restricted diffusion anteriorly. Intrinsic T1 hyperin tensity identified. Regions of more peripherally located blooming artifact within the lesion consiste nt with prior hemorrhage. No new evidence of metastatic disease. The allen-white junctions, ventricular system, basal cisterns appear unremarkable. Similar patchy per iventricular subcortical T2/FLAIR hyperintense white matter foci. Diffusion-weighted imaging shows no evidence of restricted diffusion to suggest acute/subacute infarct. Intracranial arterial flow voids are maintained. Midline structures show no abnormality. No significant paranasal sinus disease. Overall contents are intact. IMPRESSION: 1. Posttreatment changes . Marginal decrease in size of left frontal lobe resection cavity. There is continued internal peripheral enhancement with increasing vasogenic edema within the left frontal lo be. No new regions of enhancement to suggest metastatic disease. Findings could be seen with posttrea tment changes however residual malignancy is not excluded. Continued surveillance is recommended. 2. Similar nonspecific white matter changes likely related to small vessel ischemic disease. 3. No evidence for acute/subacute infarct. [facility], , 11/03/2024 11:25 AM
== END | disposition home or self-care (01) ==
LOC: RADMRIMAIN 19:45
PROVIDERS: ATTEND Radiology Radiation Oncology
DX: C15.5 Malignant neoplasm of lower third of esophagus (principal); G93.6 Cerebral edema; R90.82 White matter disease, unspecified; Z98.890 Other specified postprocedural states
CPT/HCPCS: 70553; A9585